=== PATIENT | male | born 1990 | race Caucasian/White ===

== ENCOUNTER → 2022-09-08 10:48 | Outpatient (BNVA) | payer OTHER, SELFPAY | PROVIDERS: PCP Nurse Practitioner Adult Health; Visit Provider Urology | DX: Q55.69 Other congenital malformation of penis (principal) | CPT/HCPCS: 99202 ==

== ENCOUNTER 2022-11-04 10:48 | Outpatient (REF) | payer OTHER, SELFPAY ==
--- NOTE | ~2022-11-04 | XR_ITS ---
EXAMINATION: XR HAND, RIGHT CLINICAL INFORMATION: Pain COMPARISON: None available. TECHNIQUE: PA, lateral, and oblique views of the right hand. FINDINGS: Acute obliquely oriented nondisplaced fracture of the fourth metacarpal diaphysis. Joint spaces are maintained. Soft tissues are unremarkable. XR/XR hand RT min 3V IMPRESSION: Acute obliquely oriented nondisplaced fracture of the fourth metacarpal diaphysis.
== END 2022-11-04 10:49 | disposition home or self-care (01) ==
LOC: HO.HOSX 10:48
PROVIDERS: PCP Nurse Practitioner Adult Health; Visit Provider Orthopaedic Surgery
DX: S62.324A Displaced fracture of shaft of fourth metacarpal bone, right hand, initial encounter for closed fracture (principal); X58.XXXA Exposure to other specified factors, initial encounter; Y93.75 Activity, martial arts; Y92.9 Unspecified place or not applicable; Y99.9 Unspecified external cause status
CPT/HCPCS: 26600; 73130; 99202